=== PATIENT | female | born 1980 | race Caucasian/White ===

== ENCOUNTER 2018-04-15 12:44 | Emergency (ER) | payer OTHER ==
[~2018-04-15] VITALS: Ht 162.6 cm; Wt 65.8 kg
[2018-04-15] MEDS ORDERED: NKM (13:13)
[2018-04-15] MEDS ORDERED: Ketorolac 30mg Inj IV ONE (13:45)
--- NOTE | 2018-04-15 14:29 | Emergency Room Report ---
History of Present Illness General Chief Complaint: Back Pain-No Injury Source: Patient Present Illness HPI Patient is a 37-year-old female who presented after increased low back pain. Patient reports having increased the numbness to her left leg. She reports having increased difficulty with ambulation. Patient denies any recent trauma. The patient not been having any vomiting patient had been having any diarrhea. She denied any fever. She had denied IV drug use. The patient reports having worsening pain. This is affecting her sleep and having increased difficulty with her back.The patient is a constant 8 out of 10 Allergies: Coded Allergies: No Known Allergies (Unverified , 04/15/18) Patient History Past Medical History: see triage record Last Menstrual Period: 03/22/2018 Reviewed Nursing Documentation: PMH: Agreed; PSxH: Agreed Nursing Documentation-PMH Past Medical History: No Stated History Review of Systems All Other Systems: negative except mentioned in HPI Physical Exam Vital Signs Date Time Temp Pulse Resp B/P (MAP) Pulse Ox O2 Delivery O2 Flow Rate FiO2 04/15/18 13:09 98.4 63 14 116/76 98 Room Air 98.4 General Appearance: well appearing, no apparent distress, alert, GCS 15 Head: normocephalic, atraumatic ENT: hearing grossly normal, normal voice Neck: full range of motion, supple Respiratory: no respiratory distress, speaking full sentences Cardiovascular #1: normal inspection Gastrointestinal: normal inspection, normal bowel sounds, non tender Musculoskeletal: no calf tenderness Neurologic: normal gait Psychiatric: mood/affect normal Skin: no rash Medical Decision Making Diagnostic Impression: Primary Impression: Back pain Additional Impression: Lumbar disc disease with radiculopathy ER Course Patient presented for back pain.Differential diagnosis included but was not limited to herniated disc, cauda equina syndrome, abdominal aortic aneurysm, perforated ulcer, spinal epidural abscess, spinal stenosis, lumbar fracture, metastatic lesion, pyelonephritis. Because of complexity of patient's case laboratory testing and imaging studies were ordered.MRI was ordered due to patient's radicular pain. The patient was noted to have broad-based posterior disc protrusion at L4-L5 without evidence of significant neural compromise. The incidental finding of lower sacral nerve root sleeve cyst on the left. The patient was given prescription for pain medications. She is advised to follow- up with her primary care physician. The patient is advised to return if she had any worsening symptoms or other concerns. Labs Test 04/15/18 14:09 Urine HCG, Qualitative Negative (NEGATIVE) Last Vital Signs Date Time Temp Pulse Resp B/P (MAP) Pulse Ox O2 Delivery O2 Flow Rate FiO2 04/15/18 13:09 98.4 63 14 116/76 98 Room Air 98.4 Status: improved Disposition: HOME, SELF-CARE Condition: Stable Scripts Acetaminophen (Tylenol) 325 Mg Tablet 650 MG ORAL Q6H PRN for Prn Pain/Headache/Temp > 101, #30 TAB 0 Refills Prov: Jerald Pandey MD 04/15/18 Lidocaine (Lidocaine) 1 Each Adh..patch 5 % TP DAILY, #30 PATCH Prov: Jerald Pandey MD 04/15/18 Referrals: NON PHYSICIAN (PCP) Jerald Pandey MD Apr 15, 2018 14:29
[2018-04-15] MEDS ORDERED: TYLENOL325 MG ORAL (15:31)
[2018-04-15] MEDS ORDERED: LIDOCAINE700 M1 TP (15:31)
--- NOTE | 2018-04-15 15:37 | Diagnostic Imaging Report ---
Indication: Lower back pain x3 weeks, pain radiating down left leg Technique: Sagittal T1 and T2 fast spin echo, sagittal STIR, axial T1 and T2 fast spin-echo images of the lumbar spine Comparison: none Findings: Bony alignment is normal. Vertebral body heights are preserved. The disc spaces are preserved. There is mild disc desiccation at L5-S1. Vertebral marrow signal is normal. The conus medullaris terminates at the bottom of L1. At L4-5, there is minimal broad-based posterior disc protrusion and a small high intensity zone within the annulus. However, this does not appear to significantly compromise the spinal canal or the lateral recesses. There may be very slight compromise of the left neural foramen by the bulging disc. At the remaining disc levels, no significant disc bulge or protrusion, spinal stenosis, or neural foraminal stenosis. There are small nerve root sleeve cysts of what are probably the S3 and S4 nerve roots on the left. The included extra spinal soft tissues are unremarkable Impression: Minimal broad-based posterior disc protrusion at L4-5, with out evidence of significant neural compromise Otherwise essentially unremarkable exam Incidental finding of lower sacral nerve root sleeve cysts on the left
[2018-04-15 15:40] VITALS: BP 124/74
== END 2018-04-15 15:40 | disposition home or self-care (01) ==
LOC: EMR 13:42
DX: M54.16 Radiculopathy, lumbar region (principal)
CPT/HCPCS: 72148; 81025; 96374; 99284; J1885